=== PATIENT | female | born 1970 ===

== ENCOUNTER 2021-05-27 21:41 | Inpatient (IN) | payer MEDICARE, MEDICAID ==
[2021-05-27] MEDS ORDERED: Magnesium 2 GM/50 ML BAG (IN WATER) ONE (23:06)
[2021-05-27] MEDS ORDERED: Calcium Gluc 4.6 MEQ/10 ML (100 MG/ML) ONE (23:06)
[2021-05-27 23:12] LABS: #Lymphocytes 2.4 thou/uL (1.20-3.40); #Monocytes 1.3 thou/uL (0.11-0.59); #Neutrophils 13.4 thou/uL (1.40-6.50); %Basophils 0.2 % (0.0-1.0); %Eosinophils 0.3 % (0.0-10.0); %Lymphocytes 14.2 % (21.0-51.0); %Monocytes 7.5 % (0.0-10.0); %Neutrophils 77.9 % (42.0-75.0); Hemoglobin 16.7 g/dL (12.0-16.0); Mean Corpuscular HGB CONC 32.9 g/dL (32.0-36.0); Mean Corpuscular Hemoglobin 33.5 pg (27.0-31.0); Mean Platelet Volume 7.7 fL (7.4-10.4); Platelet Count 282 thou/uL (130-400); RBC Distribution Width 10.8 % (11.5-14.5); Red Blood Cell (RBC) Count 4.97 mill/uL (4.20-5.40); White Blood Cell (WBC) Count 17.2 thou/uL (4.8-10.8)
[2021-05-27 23:30] LABS: Phosphorus 4.3 mg/dL (2.3-4.7)
[2021-05-27 23:32] LABS: Acetaminophen Less than 6.0 mcg/mL (10.0-30.0); Alcohol Less than 10 mg/dL (Less than 10); CK (CPK) 48 U/L (29-168); Magnesium 2.4 mg/dL (1.6-2.6); Salicylate Less than 8.0 mg/dL (15.0-30.0)
[2021-05-27 23:33] LABS: ALT (SGPT) 18 U/L (8-55); AST (SGOT) 14 U/L (5-34); Albumin 4.8 g/dL (3.5-5.0); Alkaline Phosphatase 87 U/L (40-110); Anion Gap 20 mmol/L (10-20); BUN (Urea Nitrogen) 34 mg/dL (9.8-20.1); Bilirubin, Total 0.7 mg/dL (0.2-1.2); Calc. Creatinine Clearance 0 mL/min (70-130); Carbon Dioxide 23 mmol/L (22-29); Chloride 108 mmol/L (98-107); Globulin 2.8 g/dL (2.4-3.5); Glucose 113 mg/dL (70-105); Potassium 3.8 mmol/L (3.5-5.1); Protein, Total 7.6 g/dL (6.0-8.3); Sodium 147 mmol/L (136-145)
[2021-05-27 23:39] LABS: BHCG - Serum Negative (NEGATIVE); Pregs Control Background? CLEAR/WHITE (CLR/WHITE); Pregs Control Bar Appear? YES (CONTROL BAR)
[2021-05-27 23:49] LABS: Thyroid Stimulating Hormone 0.7236 uIU/mL (0.35-4.94)
[2021-05-28] MEDS ORDERED: hydrALAZINE 20 MG/ML VIAL SLOW IVP PRN (00:33)
[2021-05-28 00:36] LABS: Bacteria/HPF None Seen HPF (None Seen); Bilirubin 1+ (Negative); Blood, Urine Trace (Negative); Clarity Clear (Clear); Glucose, Urine (Dipstick) Normal (Negative); Ketone, Urine Greater than 150 mg/dL (Negative); Leukocyte Negative Leu/uL (Negative); Nitrite Negative (Negative); Protein, Urine (Dipstick) 70 mg/dL (Neg-Trace); Specific Gravity, Urine 1.031 (1.002-1.036); Squamous Epithelial 0-3 HPF (0-3); Urobilinogen 3 mg/dL (Less than 2); WBC/HPF 0-3 HPF (0-3)
[2021-05-28 00:41] LABS: Amphetamine Not Detected (NotDetected); Barbiturates Screen Not Detected (NotDetected); Benzodiazepine Screen Detected (NotDetected); Cocaine Metabolite Screen Not Detected (NotDetected); Methadone Not Detected (NotDetected); Methamphetamine Not Detected (NotDetected); Opiate Screen Detected (NotDetected); Oxycodone Screen Not Detected (NotDetected); Phencyclidine (PCP) Not Detected (NotDetected); THC/Cannabinoid Screen Not Detected (NotDetected); Tricyclic Screen Not Detected (NotDetected)
[2021-05-28] MEDS ORDERED: niCARdipine 20MG In NaCl 20 MG/200 ML BAG ONE (01:13)
[2021-05-28] MEDS ORDERED: Acetaminophen 650 MG Suppository PR PRN (01:33)
[2021-05-28] MEDS ORDERED: Ondansetron PF 4 MG/2 ML Vial IVP PRN (01:33)
[2021-05-28] MEDS ORDERED: Ondansetron ODT 4 MG TAB PO PRN (01:33)
[2021-05-28] MEDS ORDERED: Sodium Chloride 0.9% 1,000 ML IV SCH (02:30)
[2021-05-28 02:36] LABS: SARS-CoV-2 NAA Rapid Test Not Detected (NotDetected)
[2021-05-28 02:58] LABS: Analyzer IN Cardio ER; Calcium, Ionized (venous) 1.08 mmol/L (1.16-1.32); Chloride (VBG) 112 mmol/L (98-106); Hemoglobin (Hb) 15.5 g/dL (11.7-16.0); Potassium (VBG) 3.63 mmol/L (3.70-5.30); Sodium 143.4 mmol/L (133-146)
[2021-05-28 03:11] LABS: Actual Bicarbonate (HCO3v) 22 mEq/L (22-28); Base Excess -1.8 mEq/L (-2.0 to +3.0); pH (venous) 7.41 (7.32-7.43)
[2021-05-28] MEDS ORDERED: Piperacillin/Tazobactam 3.375 GM in Sodium Chloride 0.9% 100 ML IVPB SCH ×3 (03:15→08:00)
[2021-05-28 03:17] LABS: #Basophils 0.1 thou/uL (0.0-0.2); #Lymphocytes 2.7 thou/uL (1.20-3.40); #Monocytes 1.4 thou/uL (0.11-0.59); #Neutrophils 13.3 thou/uL (1.40-6.50); %Basophils 0.4 % (0.0-1.0); %Eosinophils 0.2 % (0.0-10.0); %Lymphocytes 15.5 % (21.0-51.0); %Neutrophils 75.9 % (42.0-75.0); Hemoglobin 15.4 g/dL (12.0-16.0); Mean Corpuscular HGB CONC 33.9 g/dL (32.0-36.0); Mean Corpuscular Hemoglobin 34.7 pg (27.0-31.0); Mean Platelet Volume 7.4 fL (7.4-10.4); Platelet Count 240 thou/uL (130-400); RBC Distribution Width 10.7 % (11.5-14.5); Red Blood Cell (RBC) Count 4.44 mill/uL (4.20-5.40); White Blood Cell (WBC) Count 17.6 thou/uL (4.8-10.8)
[2021-05-28 03:30] LABS: Troponin I 0.033 ng/mL (< 0.028)
[2021-05-28 03:45] LABS: ALT (SGPT) 17 U/L (8-55); AST (SGOT) 13 U/L (5-34); Albumin 4.2 g/dL (3.5-5.0); Alkaline Phosphatase 72 U/L (40-110); Bilirubin, Direct 0.2 mg/dL (0.1-0.3); Bilirubin, Total 0.5 mg/dL (0.2-1.2); Protein, Total 6.5 g/dL (6.0-8.3)
[2021-05-28] MEDS ORDERED: Sodium Chloride 0.45% 1,000 ML IV SCH (03:45)
[2021-05-28 03:54] LABS: Acetaminophen Less than 6.0 mcg/mL (10.0-30.0); Salicylate Less than 8.0 mg/dL (15.0-30.0)
[2021-05-28 03:59] LABS: Anion Gap 17 mmol/L (10-20); BUN (Urea Nitrogen) 32 mg/dL (9.8-20.1); Calc. Creatinine Clearance 0 mL/min (70-130); Calcium 9.2 mg/dL (7.8-10.44); Carbon Dioxide 20 mmol/L (22-29); Chloride 112 mmol/L (98-107); Glucose 99 mg/dL (70-105); Potassium 3.8 mmol/L (3.5-5.1); Sodium 145 mmol/L (136-145)
[2021-05-28 04:24] LABS: Lactic Acid 1.8 mmol/L (0.5-2.2)
[2021-05-28] MEDS: Sodium Chloride 0.9% 1,000 ML IV SCH (05:00)
[2021-05-28] MEDS ORDERED: Cefepime 2 GM VIAL ONE ×2 (06:19→18:39)
[2021-05-28] MEDS: Cefepime 2 GM in Sodium Chloride 0.9% 100 ML IVPB SCH ×2 (06:20→18:42)
[2021-05-28] MEDS ORDERED: Magnevist 469MG/ML 20 ML VIAL ONE (10:33)
[2021-05-28 10:49] LABS: Anion Gap 14 mmol/L (10-20); BUN (Urea Nitrogen) 35 mg/dL (9.8-20.1); Calc. Creatinine Clearance 148 mL/min (70-130); Calcium 9.3 mg/dL (7.8-10.44); Carbon Dioxide 25 mmol/L (22-29); Chloride 110 mmol/L (98-107); Glucose 92 mg/dL (70-105); Potassium 3.5 mmol/L (3.5-5.1); Sodium 145 mmol/L (136-145)
[2021-05-28] MEDS ORDERED: Electrolyte Replacement Protocol 1 EACH FS ONE (15:05)
[2021-05-28] MEDS ORDERED: Electrolyte Replacement Protocol FS PRN (15:15)
[2021-05-28] MEDS ORDERED: Potassium Chloride 20 MEQ/100 ML PREMIX BAG ONE ×2 (15:17)
[2021-05-28] MEDS: Potassium Chloride 20 MEQ in Premix Bag 1 BAG IVPB SCH ×2 (15:30→17:51)
[2021-05-28] MEDS: Lactated Ringer's 1,000 ML IV SCH (15:39)
[2021-05-28] MEDS ORDERED: Acetaminophen 650 MG Suppository ONE (18:53)
[2021-05-28] MEDS: Acetaminophen 325 MG TAB PO PRN (18:57)
[2021-05-28] MEDS ORDERED: Labetalol HCl 100 MG/20 ML VIAL ONE (19:34)
[2021-05-28] MEDS: Labetalol HCl 100 MG/20 ML VIAL SLOW IVP PRN (19:40)
[2021-05-28] MEDS ORDERED: Morphine 4 MG/ML VIAL ONE (22:33)
[2021-05-28] MEDS: Morphine 4 MG/ML VIAL SLOW IVP PRN (22:37)
[2021-05-29] MEDS ORDERED: Morphine 4 MG/ML VIAL ONE (02:38)
[2021-05-29] MEDS: Morphine 4 MG/ML VIAL SLOW IVP PRN (02:40)
[2021-05-29] MEDS ORDERED: Cefepime 2 GM VIAL ONE (07:55)
[2021-05-29] MEDS: Cefepime 2 GM in Sodium Chloride 0.9% 100 ML IVPB SCH ×2 (08:16→21:07)
[2021-05-29] MEDS: Lactated Ringer's 1,000 ML IV SCH ×2 (08:17→15:46)
[2021-05-29 09:28] LABS: Anion Gap 14 mmol/L (10-20); BUN (Urea Nitrogen) 19 mg/dL (9.8-20.1); Calc. Creatinine Clearance 162 mL/min (70-130); Calcium 9.1 mg/dL (7.8-10.44); Carbon Dioxide 24 mmol/L (22-29); Chloride 110 mmol/L (98-107); Glucose 95 mg/dL (70-105); Magnesium 1.9 mg/dL (1.6-2.6); Phosphorus 3.8 mg/dL (2.3-4.7); Potassium 3.9 mmol/L (3.5-5.1); Sodium 144 mmol/L (136-145)
[2021-05-29] MEDS ORDERED: Magnesium 2 GM/50 ML 2 GM in Premix Bag 1 BAG IVPB SCH (11:00)
[2021-05-29] MEDS ORDERED: Magnesium 2 GM/50 ML BAG (IN WATER) ONE (11:24)
[2021-05-29] MEDS: Sodium Chloride 0.9% 1,000 ML IV SCH (15:47)
[2021-05-29] MEDS: Acetaminophen 325 MG TAB PO PRN (21:07)
[2021-05-30] MEDS: Lactated Ringer's 1,000 ML IV SCH ×2 (02:19→14:37)
[2021-05-30 06:49] LABS: Anion Gap 14 mmol/L (10-20); BUN (Urea Nitrogen) 13 mg/dL (9.8-20.1); Calc. Creatinine Clearance 156 mL/min (70-130); Calcium 9.1 mg/dL (7.8-10.44); Carbon Dioxide 22 mmol/L (22-29); Chloride 109 mmol/L (98-107); Glucose 87 mg/dL (70-105); Magnesium 1.9 mg/dL (1.6-2.6); Phosphorus 4.2 mg/dL (2.3-4.7); Potassium 3.4 mmol/L (3.5-5.1); Sodium 142 mmol/L (136-145)
[2021-05-30] MEDS ORDERED: Magnesium 2 GM/50 ML 2 GM in Premix Bag 1 BAG IVPB SCH (08:00)
[2021-05-30] MEDS ORDERED: Potassium Chloride 40 MEQ in Sodium Chloride 0.9% 250 ML 250 ML IVPB SCH (08:00)
[2021-05-30] MEDS: Cefepime 2 GM in Sodium Chloride 0.9% 100 ML IVPB SCH ×2 (09:00→18:07)
[2021-05-30] MEDS: Acetaminophen 325 MG TAB PO PRN (09:01)
[2021-05-30] MEDS ORDERED: Potassium Chloride 20 MEQ TAB PO SCH (11:15)
[2021-05-30] MEDS: Labetalol HCl 100 MG/20 ML VIAL SLOW IVP PRN ×2 (11:27→16:46)
[2021-05-30] MEDS: Gabapentin 400 MG CAP PO SCH ×2 (15:09→22:14)
[2021-05-30 16:05] LABS: Potassium 3.6 mmol/L (3.5-5.1)
[2021-05-30] MEDS: SUMAtriptan Succinate 50 MG TAB PO PRN (16:45)
[2021-05-30] MEDS: Rosuvastatin 10 MG TAB PO SCH (22:14)
[2021-05-30] MEDS: Propranolol HCl 20 MG TAB PO SCH (22:17)
[2021-05-31] MEDS: Lactated Ringer's 1,000 ML IV SCH ×2 (06:24→21:56)
[2021-05-31] MEDS: Levothyroxine Sodium 50 MCG TAB PO SCH (06:25)
[2021-05-31] MEDS: Cefepime 2 GM in Sodium Chloride 0.9% 100 ML IVPB SCH ×2 (06:25→16:57)
[2021-05-31 06:26] LABS: Anion Gap 12 mmol/L (10-20); BUN (Urea Nitrogen) 12 mg/dL (9.8-20.1); Calc. Creatinine Clearance 140 mL/min (70-130); Carbon Dioxide 25 mmol/L (22-29); Chloride 112 mmol/L (98-107); Glucose 93 mg/dL (70-105); Magnesium 2.2 mg/dL (1.6-2.6); Phosphorus 3.9 mg/dL (2.3-4.7); Potassium 3.7 mmol/L (3.5-5.1); Sodium 145 mmol/L (136-145)
[2021-05-31] MEDS: Gabapentin 400 MG CAP PO SCH ×3 (09:01→21:57)
[2021-05-31] MEDS: Propranolol HCl 20 MG TAB PO SCH ×2 (09:01→21:57)
[2021-05-31] MEDS: Labetalol HCl 100 MG/20 ML VIAL SLOW IVP PRN (16:55)
[2021-05-31] MEDS: Acetaminophen 325 MG TAB PO PRN (18:41)
[2021-05-31] MEDS: Rosuvastatin 10 MG TAB PO SCH (21:57)
[2021-06-01] MEDS: SUMAtriptan Succinate 50 MG TAB PO PRN ×2 (05:56→16:19)
[2021-06-01] MEDS: Cefepime 2 GM in Sodium Chloride 0.9% 100 ML IVPB SCH ×2 (05:56→18:03)
[2021-06-01] MEDS: Levothyroxine Sodium 50 MCG TAB PO SCH (05:56)
[2021-06-01] MEDS: Lactated Ringer's 1,000 ML IV SCH ×2 (07:00→21:22)
[2021-06-01 07:14] LABS: Anion Gap 10 mmol/L (10-20); BUN (Urea Nitrogen) 13 mg/dL (9.8-20.1); Calc. Creatinine Clearance 117 mL/min (70-130); Calcium 9.3 mg/dL (7.8-10.44); Carbon Dioxide 29 mmol/L (22-29); Chloride 109 mmol/L (98-107); Glucose 100 mg/dL (70-105); Potassium 3.4 mmol/L (3.5-5.1); Sodium 145 mmol/L (136-145)
[2021-06-01] MEDS ORDERED: Potassium Chloride 20 MEQ TAB PO SCH (08:00)
[2021-06-01] MEDS: Gabapentin 400 MG CAP PO SCH ×3 (09:27→21:22)
[2021-06-01] MEDS: Propranolol HCl 20 MG TAB PO SCH ×2 (09:45→21:22)
[2021-06-01] MEDS: Fioricet 325/50/40 mg Tablet PO PRN (13:58)
[2021-06-01 14:12] LABS: Potassium 3.6 mmol/L (3.5-5.1)
[2021-06-01] MEDS ORDERED: Nicotine 21 MG PATCH TD SCH (14:15)
[2021-06-01] MEDS: Rosuvastatin 10 MG TAB PO SCH (21:22)
[2021-06-02] MEDS: Cefepime 2 GM in Sodium Chloride 0.9% 100 ML IVPB SCH (05:53)
[2021-06-02] MEDS: Levothyroxine Sodium 50 MCG TAB PO SCH (05:54)
[2021-06-02 06:09] LABS: Anion Gap 11 mmol/L (10-20); BUN (Urea Nitrogen) 8 mg/dL (9.8-20.1); Calc. Creatinine Clearance 124 mL/min (70-130); Calcium 9.5 mg/dL (7.8-10.44); Carbon Dioxide 27 mmol/L (22-29); Chloride 111 mmol/L (98-107); Glucose 119 mg/dL (70-105); Phosphorus 4.9 mg/dL (2.3-4.7); Potassium 3.2 mmol/L (3.5-5.1); Sodium 146 mmol/L (136-145)
[2021-06-02] MEDS ORDERED: Potassium Chloride 20 MEQ TAB PO SCH (07:00)
[2021-06-02] MEDS: Acetaminophen 325 MG TAB PO PRN (09:18)
[2021-06-02] MEDS: Gabapentin 400 MG CAP PO SCH ×3 (09:19→20:30)
[2021-06-02] MEDS: Propranolol HCl 20 MG TAB PO SCH ×2 (09:20→20:30)
[2021-06-02] MEDS: Nicotine 21 MG PATCH TD SCH (09:20)
[2021-06-02 10:46] LABS: #Basophils 0.1 thou/uL (0.0-0.2); #Eosinphils 0.1 thou/uL (0.0-0.7); #Monocytes 0.8 thou/uL (0.11-0.59); #Neutrophils 6.7 thou/uL (1.40-6.50); %Basophils 0.6 % (0.0-1.0); %Eosinophils 1.4 % (0.0-10.0); %Lymphocytes 20.5 % (21.0-51.0); %Monocytes 8.6 % (0.0-10.0); Hemoglobin 13.6 g/dL (12.0-16.0); Mean Corpuscular HGB CONC 34.3 g/dL (32.0-36.0); Mean Corpuscular Hemoglobin 34.4 pg (27.0-31.0); Mean Platelet Volume 7.9 fL (7.4-10.4); Platelet Count 210 thou/uL (130-400); RBC Distribution Width 10.5 % (11.5-14.5); Red Blood Cell (RBC) Count 3.95 mill/uL (4.20-5.40); White Blood Cell (WBC) Count 9.6 thou/uL (4.8-10.8)
[2021-06-02 11:05] LABS: Anion Gap 13 mmol/L (10-20); BUN (Urea Nitrogen) 8 mg/dL (9.8-20.1); Calc. Creatinine Clearance 112 mL/min (70-130); Calcium 9.2 mg/dL (7.8-10.44); Carbon Dioxide 27 mmol/L (22-29); Chloride 107 mmol/L (98-107); Glucose 118 mg/dL (70-105); Potassium 3.7 mmol/L (3.5-5.1); Sodium 143 mmol/L (136-145)
[2021-06-02] MEDS: Fioricet 325/50/40 mg Tablet PO PRN ×2 (11:08→20:30)
[2021-06-02] MEDS: Lactated Ringer's 1,000 ML IV SCH (12:38)
[2021-06-02] MEDS: Rosuvastatin 10 MG TAB PO SCH (20:30)
[2021-06-03] MEDS: Levothyroxine Sodium 50 MCG TAB PO SCH (05:30)
[2021-06-03 08:14] LABS: Phosphorus 4.3 mg/dL (2.3-4.7)
[2021-06-03 08:15] LABS: Anion Gap 15 mmol/L (10-20); BUN (Urea Nitrogen) 9 mg/dL (9.8-20.1); Calc. Creatinine Clearance 100 mL/min (70-130); Calcium 9.5 mg/dL (7.8-10.44); Carbon Dioxide 24 mmol/L (22-29); Chloride 108 mmol/L (98-107); Glucose 110 mg/dL (70-105); Potassium 3.9 mmol/L (3.5-5.1); Sodium 143 mmol/L (136-145)
[2021-06-03] MEDS: Fioricet 325/50/40 mg Tablet PO PRN (09:48)
[2021-06-03] MEDS: Gabapentin 400 MG CAP PO SCH ×3 (09:48→21:10)
[2021-06-03] MEDS: Nicotine 21 MG PATCH TD SCH (09:49)
[2021-06-03] MEDS: Propranolol HCl 20 MG TAB PO SCH ×2 (09:49→21:10)
[2021-06-03] MEDS: SUMAtriptan Succinate 50 MG TAB PO PRN (15:29)
[2021-06-03] MEDS: Rosuvastatin 10 MG TAB PO SCH (21:10)
[2021-06-04] MEDS: Levothyroxine Sodium 50 MCG TAB PO SCH (05:06)
[2021-06-04 06:45] LABS: Anion Gap 13 mmol/L (10-20); BUN (Urea Nitrogen) 11 mg/dL (9.8-20.1); Calc. Creatinine Clearance 104 mL/min (70-130); Calcium 9.5 mg/dL (7.8-10.44); Carbon Dioxide 30 mmol/L (22-29); Chloride 107 mmol/L (98-107); Glucose 95 mg/dL (70-105); Sodium 146 mmol/L (136-145)
[2021-06-04 06:47] LABS: Phosphorus 4.4 mg/dL (2.3-4.7)
[2021-06-04] MEDS: Acetaminophen 325 MG TAB PO PRN (08:28)
[2021-06-04] MEDS: Gabapentin 400 MG CAP PO SCH ×3 (08:29→20:18)
[2021-06-04] MEDS: Nicotine 21 MG PATCH TD SCH (08:30)
[2021-06-04] MEDS: Propranolol HCl 20 MG TAB PO SCH ×2 (08:30→20:18)
[2021-06-04] MEDS: SUMAtriptan Succinate 50 MG TAB PO PRN (10:38)
[2021-06-04] MEDS ORDERED: Naproxen 500 MG TAB PO PRN (13:38)
[2021-06-04] MEDS: Rosuvastatin 10 MG TAB PO SCH (20:18)
[2021-06-04 23:35] LABS: SARS-CoV-2 PCR by NAA Not Detected (NotDetected)
[2021-06-05] MEDS: Levothyroxine Sodium 50 MCG TAB PO SCH (05:52)
[2021-06-05 06:19] LABS: Anion Gap 13 mmol/L (10-20); BUN (Urea Nitrogen) 15 mg/dL (9.8-20.1); Calc. Creatinine Clearance 131 mL/min (70-130); Calcium 9.5 mg/dL (7.8-10.44); Carbon Dioxide 26 mmol/L (22-29); Chloride 109 mmol/L (98-107); Glucose 101 mg/dL (70-105); Phosphorus 5.1 mg/dL (2.3-4.7); Potassium 3.5 mmol/L (3.5-5.1); Sodium 144 mmol/L (136-145)
[2021-06-05] MEDS ORDERED: Potassium Chloride 20 MEQ TAB PO SCH (07:00)
[2021-06-05] MEDS: Nicotine 21 MG PATCH TD SCH (09:20)
[2021-06-05] MEDS: Gabapentin 400 MG CAP PO SCH ×3 (09:21→20:14)
[2021-06-05] MEDS: Propranolol HCl 20 MG TAB PO SCH ×2 (09:32→20:15)
[2021-06-05] MEDS: SUMAtriptan Succinate 50 MG TAB PO PRN (10:52)
[2021-06-05 13:48] LABS: Potassium 4.4 mmol/L (3.5-5.1)
[2021-06-05 20:10] VITALS: BP 100/63; TEMP 98.3
[2021-06-05] MEDS: Rosuvastatin 10 MG TAB PO SCH (20:14)
== END 2021-06-05 20:31 | DRG 64 ==
LOC: ERS 21:41 → ERHOLD 05-28 01:17 → IMCU/EMU 05-29 15:22 → 3SE 05-30 00:41
PROVIDERS: ADMIT Student in an Organized Health Care Education/Training Program; ATTEND Internal Medicine
DX: I61.3 Nontraumatic intracerebral hemorrhage in brain stem (principal); A41.9 Sepsis, unspecified organism; G92.8 Other toxic encephalopathy; J84.9 Interstitial pulmonary disease, unspecified; E87.0 Hyperosmolality and hypernatremia; G91.1 Obstructive hydrocephalus; F41.9 Anxiety disorder, unspecified; I10 Essential (primary) hypertension; T42.4X2A Poisoning by benzodiazepines, intentional self-harm, initial encounter; T40.2X2A Poisoning by other opioids, intentional self-harm, initial encounter; E03.9 Hypothyroidism, unspecified; R94.31 Abnormal electrocardiogram [ECG] [EKG]; G89.4 Chronic pain syndrome; M79.7 Fibromyalgia; F19.10 Other psychoactive substance abuse, uncomplicated; F32.9 Major depressive disorder, single episode, unspecified; Z20.822 Contact with and (suspected) exposure to COVID-19; E87.6 Hypokalemia; Z90.710 Acquired absence of both cervix and uterus; Z79.899 Other long term (current) drug therapy; Z91.041 Radiographic dye allergy status; Z88.0 Allergy status to penicillin; Z88.8 Allergy status to other drugs, medicaments and biological substances
CPT/HCPCS: 36415; 36416; 70450; 70553; 71045; 72125; 80048; 80053; 80076; 80143; 80179; 80306; 80307; 81003; 81015; 82550; 82553; 82805; 83605; 83735; 83880; 83935; 84100; 84300; 84443; 84484; 84703; 85025; 87040; 87149; 93005; 93010; 96365; 96375; A9579; J0360; J0692; J2001; J2270; J3475; J3480; J3490; J7050; J7120; U0002; U0003; U0005